=== PATIENT | male | born 1945 | race Caucasian/White ===

== ENCOUNTER 2019-04-24 14:00 | Inpatient (IN) | payer OTHER, MEDICARE ==
[2019-04-23 11:50] LABS: BASOPHILS # (AUTO) 0.1 X10'3 (0-0.2); BASOPHILS % (AUTO) 1.1 % (0-1); EOSINOPHILS # (AUTO) 0.1 X10'3 (0-0.9); EOSINOPHILS % (AUTO) 2.4 % (0-6); LYMPHOCYTES # (AUTO) 1.6 X10'3 (1.1-4.8); LYMPHOCYTES % (AUTO) 29.7 % (21-51); MEAN CORPUSCULAR HEMOGLOBIN 31.7 PG (27.0-31.0); MEAN CORPUSCULAR HGB CONC 34.1 g/dL (33.0-36.5); MEAN PLATELET VOLUME 8.1 FL (7.4-10.4); MONOCYTES # (AUTO) 0.5 X10'3 (0-0.9); MONOCYTES % (AUTO) 9.3 % (2-12); NEUTROPHILS # (AUTO) 3.2 X10'3 (1.8-7.7); NEUTROPHILS % (AUTO) 57.5 % (42-75); PRE OP HEMATOCRIT 43.6 % (42.0-52.0); PRE OP HEMOGLOBIN 14.9 g/dL (14.0-17.9); PRE OP PLATELET COUNT 181 X10'3 (140-440); RED BLOOD COUNT 4.69 X10'6 (4.70-6.10); RED CELL DISTRIBUTION WIDTH 14.3 % (11.5-14.5)
[2019-04-23 12:01] LABS: BLOOD UREA NITROGEN 18 MG/DL (7-18); BUN/CREATININE RATIO 16.2 (5.4-32.0); CHLORIDE 107 MMOL/L (99-107); CREATININE 1.11 MG/DL (0.60-1.10); PRE OP ANION GAP 8 (8-16); PRE OP GLUCOSE 100 MG/DL (70-104); PRE OP POTASSIUM 4.2 MMOL/L (3.4-5.1); PRE OP SODIUM 141 MMOL/L (135-145); TOTAL CARBON DIOXIDE 25.9 MMOL/L (24-32)
[2019-04-23 12:02] LABS: ALBUMIN 3.8 G/DL (3.4-5.0); ALBUMIN/GLOBULIN RATIO 1.2 (1.1-1.5); ALKALINE PHOSPHATASE 53 IU/L (46-116); PRE OP ALT 34 U/L (30-65); PRE OP AST 28 U/L (10-37); PRE OP BILIRUB, TOTAL 0.5 MG/DL (0.0-1.0); TOTAL PROTEIN 7.1 G/DL (6.4-8.2); eGFR 65 ML/MIN
[2019-04-23 12:03] LABS: PRE OP INR 1.1 INR
[2019-04-23 12:07] LABS: CALCIUM 8.7 MG/DL (8.5-10.1)
[~2019-04-24] VITALS: Ht 182.9 cm; Wt 108.9 kg
[~2019-04-24 14:00] MED LIST: ASPI-1265 PO; CHOL10002 PO; CITA40TA11 PO; FLO0.4C PO; HYDR-3972 PO; METO-539 PO; NITR0.4T SL; OMEG1CAP2 PO; PANT-47 PO; ROSU40TA PO
[2019-05-01] VITALS (26 sets, daily range): BP systolic 92–126; BP diastolic 41–75
[2019-05-01] MEDS ORDERED: ringers solution, lacted 1,000 ML IV SCH ×2 (05:00→07:50)
[2019-05-01] MEDS ORDERED: metoclopramide 5 mg/ml inj IV ONE (05:30)
[2019-05-01] MEDS ORDERED: tranexamic acid inj. 1,000 MG in normal saline 100 ML IV ONE (05:30)
[2019-05-01] MEDS ORDERED: vancomycin inj 1,500 MG in normal saline 300ml IV soln IV ONE (05:30)
[2019-05-01] MEDS ORDERED: DOCUMENT DATE & TIME OF BETA-BLOCKER PO ONE (05:30)
[2019-05-01] MEDS ORDERED: famotidine 20mg tablet PO ONE (05:30)
[2019-05-01] MEDS ORDERED: acetaminophen 325mg tablet PO ONE (05:30)
[2019-05-01] MEDS ORDERED: oxyCODONE SR 10mg (sust. release) tab PO ONE (05:30)
[2019-05-01] MEDS ORDERED: cefazolin/dext.iso 2gm/100 ML IV ONE (05:30)
[2019-05-01] MEDS ORDERED: celeCOXIB 100mg capsule PO ONE ×2 (05:30)
[2019-05-01] MEDS ORDERED: gabapentin 300mg capsule PO ONE (05:30)
[2019-05-01] MEDS ORDERED: LIDOcaine 1% (10mg/ml) 2ml vial ONE (06:08)
[2019-05-01] MEDS ORDERED: diphenhydrAMINE 25mg capsule PO PRN ×2 (06:15)
[2019-05-01] MEDS ORDERED: HYDROmorphone inj. 0.5 MG/0.5 ML DISP.SYRIN IV PRN (06:15)
[2019-05-01] MEDS ORDERED: acetaminophen 325mg tablet PO PRN (06:15)
[2019-05-01] MEDS ORDERED: nitroGLYCERIN 0.4mg SUBLingual tab SL SCH (06:15)
[2019-05-01] MEDS ORDERED: bisacodyl 10mg suppository rectal RC PRN (06:15)
[2019-05-01] MEDS ORDERED: HYDROmorphone 1 mg/ml syringe IV PRN (06:15)
[2019-05-01] MEDS ORDERED: ROPIVAcaine inj 250 MG, epiNEPHrine inj 0.5 MG, CloNIDine/PF inj 80 MCG in normal salin... IU ONE (06:40)
[2019-05-01] MEDS ORDERED: vancomycin 1,000mg inj ONE (06:53)
[2019-05-01] MEDS ORDERED: ketorolac trometh. 30mg/ml inj. ONE (06:53)
[2019-05-01] MEDS ORDERED: ROPIVAcaine 0.5% (5mg/ml) 30ml vial ONE ×2 (07:38→08:34)
[2019-05-01] MEDS ORDERED: tetracaine 1% (10mg/ml) pres. free inj. ONE (07:39)
[2019-05-01] MEDS ORDERED: fentaNYL/PF 50MCG/1 ML 2ML syringe ONE (07:44)
[2019-05-01] MEDS ORDERED: morphine /PF 1mg/ml 10ml inj. ONE (07:44)
[2019-05-01] MEDS ORDERED: MIDAZolam 1mg/ml 10ml vial ONE (07:44)
[2019-05-01] MEDS ORDERED: ondansetron/PF 4mg/2ml inj IV PRN ×2 (07:50→11:10)
[2019-05-01] MEDS ORDERED: morphine 4 MG/ML inj SYRINge IV PRN ×2 (07:50)
[2019-05-01] MEDS ORDERED: fentaNYL/PF 50MCG/1 ML 2ML syringe IV PRN ×2 (07:50)
[2019-05-01] MEDS ORDERED: labetalol 20mg/4ml (5mg/ml) syringe IV PRN (07:50)
[2019-05-01] MEDS ORDERED: hydrALAZINE 20mg/ml inj. IV PRN (07:50)
[2019-05-01] MEDS ORDERED: non-formulary drug (Omega-3 Fatty Acids/Fish Oil (Fish Oil 1,000 mg Capsule) 1 TAB) PO SCH (08:00)
[2019-05-01] MEDS ORDERED: CITALOPRAM HYDROBROMIDE 30 MG PO SCH (08:00)
[2019-05-01] MEDS ORDERED: ePHEDrine 50MG/ML INJ. ONE (08:18)
[2019-05-01] MEDS ORDERED: cloNIDine hcl/PF 100mcg/ml inj ONE (08:34)
[2019-05-01] MEDS ORDERED: epiNEPHrine 1 mg/ml inj ONE (08:34)
[2019-05-01] MEDS ORDERED: dexamethasone sod phosphate 4mg/ml inj. ONE (09:25)
[2019-05-01] MEDS ORDERED: ROPIVAcaine 0.2%/PF PAIN PUMP 400 ML IJ SCH (09:30)
--- NOTE | 2019-05-01 10:19 | NUR ---
Received from OR via BED, accompanied by Anesthesiologist DR HURD and report given by Anesthesiologist. PT DROWSY, DENIES PAIN, RIGHT KNEE W/DRSG, ICE PACK, LEG WRAP, ICE PACK, CDI ELICIA DRAIN W/GREEN LIGHT ILLUMINATION, MARTINEZ TO GRAVITY DRAINAGE, PT W/SAB, DERMATOME LEVEL T 9-T 10. Addendum: 05/01/19 at 1122 by Melba Márquez RN Amended: Links added. Addendum: 05/01/19 at 1158 by Melba Márquez RN LATE ENTRY: BLANKET WARMER APPLIED FOR TEMP OF 35.6
[2019-05-01] MEDS ORDERED: diphenhydrAMINE 50 mg/ml inj IV PRN (11:10)
--- NOTE | 2019-05-01 14:09 | NUR ---
Report called to receiving nurse. Transferred via BED, 1 BAG OF PERSONAL Belongings AND GLASSES SENT W/PT TO ROOM 4009C, RECEIVING RN AT BEDSIDE TOR RECEIVE PT, BLL, CALL LIGHT GIVEN, SIDE RAILS UP X 2, PRESENT. Special Issues communicated to receiving nurse. YES. Addendum: 05/01/19 at 1454 by Melba Márquez RN Amended: Links added.
[2019-05-01] MEDS: potassium cl 20mEq in 1/2 NS 1,000 ML IV SCH ×3 (14:15→22:15)
[2019-05-01] MEDS: cefazolin/dext.iso 2gm/100ml 100 ML IV SCH (16:10)
[2019-05-01] MEDS ORDERED: tranexamic acid inj. 1,080 MG in normal saline 100ml IV soln 100 ML IV ONE (18:00)
--- NOTE | 2019-05-01 19:40 | NUR ---
this medication is past time to give.
[2019-05-01] MEDS: ondansetron/PF 4mg/2ml inj IV PRN (19:42)
[2019-05-01] MEDS: sennosides 8.6mg tablet PO SCH (20:27)
[2019-05-01] MEDS: gabapentin 300mg capsule PO SCH (20:28)
[2019-05-01] MEDS: pantoprazole 40mg Tablet.DR PO SCH (20:28)
[2019-05-01] MEDS: ascorbic acid 500mg tablet PO SCH (20:28)
[2019-05-01] MEDS: atorvastatin 20mg tablet PO SCH (20:29)
[2019-05-01] MEDS: tamsulosin 0.4mg capsule PO SCH (20:29)
[2019-05-01] MEDS ORDERED: non-formulary drug (Rosuvastatin Calcium* (Crestor*) 1 TAB) PO SCH (21:00)
[2019-05-02] MEDS: cefazolin/dext.iso 2gm/100ml 100 ML IV SCH (00:43)
[2019-05-02 02:00] VITALS: BP 106/34
[2019-05-02] MEDS: potassium cl 20mEq in 1/2 NS 1,000 ML IV SCH ×3 (05:11→22:15)
[2019-05-02] MEDS: oxyCODONE/APAP 10/325mg tablet PO PRN ×4 (05:42→19:35)
[2019-05-02 06:10] VITALS: BP 109/58
--- NOTE | 2019-05-02 06:25 | NUR ---
I have received patient report from Devika SHERWOOD
--- NOTE | 2019-05-02 06:39 | NUR ---
Report given to joel Peterson.
[2019-05-02 06:56] LABS: BASOPHILS % (AUTO) 0.4 % (0-1); EOSINOPHILS % (AUTO) 0.3 % (0-6); HEMATOCRIT 36.3 % (42.0-52.0); HEMOGLOBIN 12.2 g/dl (14.0-17.9); LYMPHOCYTES # (AUTO) 1.1 X10'3 (1.1-4.8); LYMPHOCYTES % (AUTO) 12.5 % (21-51); MEAN CORPUSCULAR HEMOGLOBIN 31.6 PG (27.0-31.0); MEAN CORPUSCULAR HGB CONC 33.7 g/dL (33.0-36.5); MEAN CORPUSCULAR VOLUME 93.8 FL (78-98); MEAN PLATELET VOLUME 8.2 FL (7.4-10.4); MONOCYTES % (AUTO) 11.4 % (2-12); NEUTROPHILS # (AUTO) 6.7 X10'3 (1.8-7.7); NEUTROPHILS % (AUTO) 75.4 % (42-75); PLATELET COUNT 139 X10'3 (140-440); RED BLOOD COUNT 3.87 X10'6 (4.70-6.10); RED CELL DISTRIBUTION WIDTH 14.3 % (11.5-14.5); WHITE BLOOD COUNT 8.9 X10'3 (4.5-11.0)
[2019-05-02 07:13] LABS: ANION GAP 7 (8-16); CHLORIDE 106 MMOL/L (99-107); POTASSIUM 4.2 MMOL/L (3.5-5.1); SODIUM 139 MMOL/L (135-145); TOTAL CARBON DIOXIDE 25.6 MMOL/L (24-32)
[2019-05-02] MEDS: metoprolol succinate 25mg (24-HOUR) SR. Tablet PO SCH (08:00)
[2019-05-02] MEDS: omega-3 acid ethyl esters 1GM capsule PO SCH (08:01)
[2019-05-02] MEDS: ascorbic acid 500mg tablet PO SCH ×2 (08:01→19:34)
[2019-05-02] MEDS: multivitamins, therapeutics tablet PO SCH (08:01)
[2019-05-02] MEDS: aspirin 325mg tablet PO SCH (08:01)
[2019-05-02] MEDS: gabapentin 300mg capsule PO SCH ×3 (08:01→20:13)
[2019-05-02] MEDS: pantoprazole 40mg Tablet.DR PO SCH ×2 (08:01→19:35)
--- NOTE | 2019-05-02 08:02 | NUR ---
morning meds did not save, computer not holding a charge. med packs already in trash
[2019-05-02] MEDS: CITALOpram 10mg tablet PO SCH (08:27)
[2019-05-02 10:00] VITALS: BP 93/50
[2019-05-02 14:00] VITALS: BP 122/53
--- NOTE | 2019-05-02 14:01 | NUR ---
Joint replacement consult: Pt seen by CAMERON for written/verbal high protein ed. RD reviewed high protein needs for wound healing, immune strength, high protein foods, and protein supplementation options. RD contact information provided in case of further questions. Pt declines additional proteins at this time; dislikes cherelle. Dietary notified. Will continue to monitor. Addendum: 05/02/19 at [address] Amended: Links added.
[2019-05-02 18:00] VITALS: BP 98/56
--- NOTE | 2019-05-02 18:22 | NUR ---
Patient report given to Devika SHERWOOD
[2019-05-02] MEDS: celeCOXIB 100mg capsule PO SCH (19:34)
[2019-05-02] MEDS: tamsulosin 0.4mg capsule PO SCH (20:13)
[2019-05-02] MEDS: atorvastatin 20mg tablet PO SCH (20:13)
[2019-05-02] MEDS: sennosides 8.6mg tablet PO SCH (20:14)
[2019-05-02 22:00] VITALS: BP 133/56
[2019-05-03] MEDS: oxyCODONE/APAP 10/325mg tablet PO PRN ×5 (01:33→21:39)
[2019-05-03] MEDS: ondansetron/PF 4mg/2ml inj IV PRN (03:13)
[2019-05-03 06:10] VITALS: BP 117/56
--- NOTE | 2019-05-03 06:26 | NUR ---
REPORT GIVEN TO PRESLEY RICHARDSON.
--- NOTE | 2019-05-03 06:27 | NUR ---
I have received patient report from Devika SHERWOOD
[2019-05-03 06:30] LABS: BASOPHILS # (AUTO) 0.1 X10'3 (0-0.2); BASOPHILS % (AUTO) 0.7 % (0-1); EOSINOPHILS # (AUTO) 0.2 X10'3 (0-0.9); EOSINOPHILS % (AUTO) 2.6 % (0-6); HEMATOCRIT 35.9 % (42.0-52.0); HEMOGLOBIN 12.2 g/dl (14.0-17.9); LYMPHOCYTES # (AUTO) 0.9 X10'3 (1.1-4.8); LYMPHOCYTES % (AUTO) 12.8 % (21-51); MEAN CORPUSCULAR HEMOGLOBIN 31.9 PG (27.0-31.0); MEAN CORPUSCULAR VOLUME 93.6 FL (78-98); MEAN PLATELET VOLUME 8.1 FL (7.4-10.4); MONOCYTES # (AUTO) 1.2 X10'3 (0-0.9); MONOCYTES % (AUTO) 16.6 % (2-12); NEUTROPHILS # (AUTO) 4.7 X10'3 (1.8-7.7); NEUTROPHILS % (AUTO) 67.3 % (42-75); PLATELET COUNT 134 X10'3 (140-440); RED BLOOD COUNT 3.84 X10'6 (4.70-6.10); RED CELL DISTRIBUTION WIDTH 14.8 % (11.5-14.5)
[2019-05-03] MEDS: metoprolol succinate 25mg (24-HOUR) SR. Tablet PO SCH (08:56)
[2019-05-03] MEDS: gabapentin 300mg capsule PO SCH ×3 (09:01→20:18)
[2019-05-03] MEDS: omega-3 acid ethyl esters 1GM capsule PO SCH (09:01)
[2019-05-03] MEDS: aspirin 325mg tablet PO SCH (09:01)
[2019-05-03] MEDS: multivitamins, therapeutics tablet PO SCH (09:01)
[2019-05-03] MEDS: CITALOpram 10mg tablet PO SCH (09:01)
[2019-05-03] MEDS: pantoprazole 40mg Tablet.DR PO SCH ×2 (09:01→20:19)
[2019-05-03] MEDS: ascorbic acid 500mg tablet PO SCH ×2 (09:01→20:16)
[2019-05-03] MEDS: celeCOXIB 100mg capsule PO SCH ×2 (09:01→20:16)
[2019-05-03 10:00] VITALS: BP 108/62
[2019-05-03] MEDS: magnesium hydroxide 30ml (MOM) UD suspension PO PRN (11:07)
[2019-05-03 18:00] VITALS: BP 144/72
--- NOTE | 2019-05-03 18:26 | NUR ---
Patient report given to Saloni Campos RN
[2019-05-03] MEDS: atorvastatin 20mg tablet PO SCH (20:17)
[2019-05-03] MEDS: sennosides 8.6mg tablet PO SCH (20:18)
[2019-05-03] MEDS: tamsulosin 0.4mg capsule PO SCH (20:18)
[2019-05-03 22:00] VITALS: BP 159/69
[2019-05-04] MEDS: oxyCODONE/APAP 10/325mg tablet PO PRN ×3 (05:23→13:35)
[2019-05-04 06:00] VITALS: BP 149/66
--- NOTE | 2019-05-04 06:26 | NUR ---
Problems reprioritized. Patient report given, questions answered & plan of care reviewed with PRESLEY Sood.
[2019-05-04 06:38] LABS: BASOPHILS # (AUTO) 0.1 X10'3 (0-0.2); BASOPHILS % (AUTO) 0.8 % (0-1); EOSINOPHILS # (AUTO) 0.2 X10'3 (0-0.9); EOSINOPHILS % (AUTO) 3.8 % (0-6); HEMATOCRIT 34.7 % (42.0-52.0); LYMPHOCYTES # (AUTO) 1.2 X10'3 (1.1-4.8); LYMPHOCYTES % (AUTO) 19.1 % (21-51); MEAN CORPUSCULAR HEMOGLOBIN 32.3 PG (27.0-31.0); MEAN CORPUSCULAR HGB CONC 34.4 g/dL (33.0-36.5); MEAN CORPUSCULAR VOLUME 93.7 FL (78-98); MEAN PLATELET VOLUME 8.2 FL (7.4-10.4); MONOCYTES % (AUTO) 15.3 % (2-12); NEUTROPHILS # (AUTO) 3.8 X10'3 (1.8-7.7); PLATELET COUNT 126 X10'3 (140-440); RED BLOOD COUNT 3.71 X10'6 (4.70-6.10); RED CELL DISTRIBUTION WIDTH 14.6 % (11.5-14.5); WHITE BLOOD COUNT 6.2 X10'3 (4.5-11.0)
[2019-05-04 07:30] LABS: PLATELET ESTIMATE DECREASED; TOTAL CELLS COUNTED 100
[2019-05-04] MEDS: gabapentin 300mg capsule PO SCH ×2 (08:35→13:35)
[2019-05-04] MEDS: omega-3 acid ethyl esters 1GM capsule PO SCH (08:35)
[2019-05-04] MEDS: celeCOXIB 100mg capsule PO SCH (08:35)
[2019-05-04] MEDS: CITALOpram 10mg tablet PO SCH (08:35)
[2019-05-04] MEDS: pantoprazole 40mg Tablet.DR PO SCH (08:36)
[2019-05-04] MEDS: multivitamins, therapeutics tablet PO SCH (08:36)
[2019-05-04] MEDS: ascorbic acid 500mg tablet PO SCH (08:36)
[2019-05-04] MEDS: metoprolol succinate 25mg (24-HOUR) SR. Tablet PO SCH (08:36)
[2019-05-04] MEDS: aspirin 325mg tablet PO SCH (08:36)
[2019-05-04] MEDS: magnesium hydroxide 30ml (MOM) UD suspension PO PRN (08:37)
[2019-05-04 10:00] VITALS: BP 115/76
== END 2019-05-04 14:07 | disposition home or self-care (01) | DRG 470 ==
LOC: PAS IN 05-01 05:44 → EDSTATUS 05-01 08:45 → ORTHO 4S 05-01 14:25
PROVIDERS: ADMIT Orthopaedic Surgery; ATTEND Orthopaedic Surgery
PROC: 3E0T3BZ Introduction of Anesthetic Agent into Peripheral Nerves and Plexi, Percutaneous Approach (ICD-10-PCS; 2019-05-01)
PROC: 0SRC069 Replacement of Right Knee Joint with Oxidized Zirconium on Polyethylene Synthetic Substitute, Cemented, Open Approach (ICD-10-PCS; principal; 2019-05-01 08:01)
DX: M17.11 Unilateral primary osteoarthritis, right knee (principal); D62 Acute posthemorrhagic anemia; I25.10 Atherosclerotic heart disease of native coronary artery without angina pectoris; G47.30 Sleep apnea, unspecified; F32.9 Major depressive disorder, single episode, unspecified; E66.9 Obesity, unspecified; K22.70 Barrett's esophagus without dysplasia; E78.5 Hyperlipidemia, unspecified; M21.161 Varus deformity, not elsewhere classified, right knee; G89.29 Other chronic pain; F43.10 Post-traumatic stress disorder, unspecified; N40.0 Benign prostatic hyperplasia without lower urinary tract symptoms; I25.2 Old myocardial infarction; Z95.5 Presence of coronary angioplasty implant and graft; Z68.32 Body mass index [BMI] 32.0-32.9, adult; Z87.891 Personal history of nicotine dependence; Z72.89 Other problems related to lifestyle; Z95.810 Presence of automatic (implantable) cardiac defibrillator
CPT/HCPCS: 36415; 71046; 73560; 80051; 80053; 82948; 85025; 85610; 85730; 86885; 86900; 86901; 87081; 97110; 97116; 97162; 97530; A4215; A6449; A6454; A7000; C1713; C1758; C1776; G0378; J0171; J0735; J1100; J1170; J1885; J2001; J2250; J2270; J2405; J2765; J2795; J3010; J3370; J3480; J7120